=== PATIENT | female | born 1955 | race Caucasian/White ===

== ENCOUNTER 2017-03-21 14:44 | Emergency (ER) | payer SELFPAY | END 2017-03-21 17:11 | disposition home or self-care (01) | LOC: ER 14:44 | DX: T14.8 Other injury of unspecified body region (principal); S13.4XXA Sprain of ligaments of cervical spine, initial encounter; S33.5XXA Sprain of ligaments of lumbar spine, initial encounter; V43.12XA Car passenger injured in collision with other type car in nontraffic accident, initial encounter; Y92.410 Unspecified street and highway as the place of occurrence of the external cause; M25.551 Pain in right hip; M25.552 Pain in left hip; Z88.8 Allergy status to other drugs, medicaments and biological substances; Z79.899 Other long term (current) drug therapy | CPT/HCPCS: 72072; 72100; 72125; 73130; 73502; 73564; 99283; 99284-25 ==